=== PATIENT | female | born 1960 | race Caucasian/White ===

== ENCOUNTER 2024-06-07 15:12 | Emergency (ER) | payer OTHER ==
[~2024-06-07] VITALS: Ht 167.6 cm; Wt 79.8 kg
[2024-06-07] MEDS ORDERED: KETOROLAC TROMETHAMINE 15 MG/ML VIAL ONE (16:01)
[2024-06-07] MEDS: KETOROLAC TROMETHAMINE 15 MG/ML VIAL IM ONE (16:04)
[2024-06-07] MEDS ORDERED: TYL2T PO (18:09)
[2024-06-07] MEDS ORDERED: KETOROLAC TROMETHAMINE INJ 60 MG/2 ML VIAL IM ONE (18:41)
[2024-06-07 18:47] VITALS: BP 135/79; TEMP 98.3; O2SAT 100
[2024-06-07] MEDS: KETOROLAC TROMETHAMINE INJ 60 MG/2 ML VIAL IM ONE (18:47)
== END 2024-06-07 18:47 | disposition home or self-care (01) ==
LOC: ER 15:19
DX: R07.81 Pleurodynia (principal); V43.62XA Car passenger injured in collision with other type car in traffic accident, initial encounter; Y93.89 Activity, other specified; Y92.488 Other paved roadways as the place of occurrence of the external cause; Y99.8 Other external cause status
CPT/HCPCS: 99284; 96372 ×2; 71111; J1885 ×2